=== PATIENT | male | born 1990 | race Caucasian/White ===

== ENCOUNTER 2020-12-04 16:27 | Emergency (ER) | payer OTHER ==
[~2020-12-04] VITALS: Ht 182.9 cm; Wt 63.5 kg
[2020-12-04] MEDS ORDERED: TAMS0.4C PO (20:14)
[2020-12-04] MEDS ORDERED: BACTRIM DS TAB1 EACH PO (20:14)
== END 2020-12-04 20:30 | disposition home or self-care (01) ==
LOC: ER 16:27
DX: N39.0 Urinary tract infection, site not specified (principal); N20.0 Calculus of kidney; R10.31 Right lower quadrant pain